=== PATIENT | female | born 1990 | race Caucasian/White ===

== ENCOUNTER 2022-06-11 05:16 | Inpatient (IN) | payer MEDICAID ==
[~2022-06-11 05:16] MED LIST: Lactated Ringers 1,000 ML IV ONE
[2022-06-11] MEDS: Oxytocin/Normal Saline 30 UNIT/500 ML BAG IV SCH ×2 (07:21→17:40)
[2022-06-11] MEDS ORDERED: Misoprostol 400 MCG (4 X 100 MCG TAB) RECTAL PRN (08:00)
[2022-06-11] MEDS ORDERED: Ondansetron 4 MG/2 ML SDV IVPUSH PRN (08:00)
[2022-06-11] MEDS ORDERED: Sodium Chloride 0.9% 10 ML Syringe FLUSH PRN ×2 (08:00→15:44)
[2022-06-11] MEDS ORDERED: Tranexamic Acid 1,000 MG in Sodium Chloride 0.9% 100 ML IV PRN (08:00)
[2022-06-11] MEDS ORDERED: Oxytocin/Normal Saline 30 UNIT/500 ML BAG IV SCH (08:00)
[2022-06-11] MEDS ORDERED: Acetaminophen 325 MG Tab PO PRN ×2 (08:00)
[2022-06-11] MEDS ORDERED: Methylergonovine 0.2 MG/1 ML Amp IM PRN (08:00)
[2022-06-11] MEDS ORDERED: Lidocaine 1% 30 ML SDV INJECT PRN (08:00)
[2022-06-11] MEDS ORDERED: Lactated Ringers 1,000 ML IV SCH ×2 (08:00)
[2022-06-11] MEDS ORDERED: Misoprostol 25 MCG (1/4 of 100 MCG) Tab VAG PRN (08:00)
[2022-06-11] MEDS ORDERED: Carboprost Tromethamine 250 MCG/1 ML Amp IM PRN (08:00)
[2022-06-11] MEDS ORDERED: Misoprostol 50 MCG (1/2 of 100 MCG) Tab VAG ONE (08:00)
[2022-06-11] MEDS: Sodium Chloride 0.9% 10 ML Syringe FLUSH SCH ×2 (10:36→10:37)
[2022-06-11] MEDS ORDERED: fentaNYL 100 MCG/2 ML SDV IVPUSH PRN (10:51)
[2022-06-11] MEDS ORDERED: Benzocaine/Menthol 20%-0.5% Spray 78 GM Cannister TOP PRN (15:44)
[2022-06-11] MEDS ORDERED: Ibuprofen 800 MG Tab PO PRN (15:44)
[2022-06-11] MEDS ORDERED: Oxytocin 10 Units/1 ML SDV IM PRN (15:44)
[2022-06-11] MEDS ORDERED: Zolpidem 5 MG Tab PO PRN (15:44)
[2022-06-11] MEDS ORDERED: Simethicone 80 MG Tab.Chew PO PRN (15:44)
[2022-06-11] MEDS ORDERED: Docusate Sodium 100 MG Cap PO PRN (15:44)
[2022-06-11] MEDS ORDERED: Witch Hazel Medicated Pads 100/Jar TOP PRN (15:44)
[2022-06-12] MEDS ORDERED: Prenatal Multivitamin with Calcium/Folic Acid/Iron Tab PO SCH (09:00)
[2022-06-12 09:05] VITALS: BP 114/71; PULSE 85
[2022-06-12] MEDS: Sodium Chloride 0.9% 10 ML Syringe FLUSH SCH (09:24)
== END 2022-06-12 17:48 | disposition home or self-care (01) | DRG 807 ==
LOC: DL.OB 05:16 → OBSVTOIN 15:30 → DL.OB 15:30
PROVIDERS: ADMIT Family Medicine; ATTEND Family Medicine
PROC: 10E0XZZ Delivery of Products of Conception, External Approach (ICD-10-PCS; principal; 2022-06-11)
DX: O42.02 Full-term premature rupture of membranes, onset of labor within 24 hours of rupture (principal); Z37.0 Single live birth; O26.893 Other specified pregnancy related conditions, third trimester; O99.334 Smoking (tobacco) complicating childbirth; F17.210 Nicotine dependence, cigarettes, uncomplicated; Z67.91 Unspecified blood type, Rh negative; Z3A.39 39 weeks gestation of pregnancy; Z98.890 Other specified postprocedural states; Z67.41 Type O blood, Rh negative; Z91.018 Allergy to other foods
CPT/HCPCS: 36415; 51701; 59409; 84112; 85027; A9270-GY; J2405; J2590; J3010; J7120